=== PATIENT | male | born 1950 | race Caucasian/White ===

== ENCOUNTER 2016-08-31 17:10 | Inpatient (IN) ==
[2016-08-31] MEDS: Acetaminophen 325 MG TABLET PO PRN (19:28)
[2016-08-31] MEDS: Sennosides/Docusate Sodium TABLET PO SCH (20:38)
[2016-08-31] MEDS: *HR* OxyCODONE/APAP 7.5/325 TABLET PO PRN (20:39)
[2016-08-31] MEDS ORDERED: NON-FORMULARY MEDICATION 1 EACH EACH (Glipizide [Glipizide] 10 MG) PO SCH (21:00)
[2016-08-31] MEDS ORDERED: NON-FORMULARY MEDICATION 1 EACH EACH (Metformin Hcl [Glucophage] 1,000 MG) PO SCH (21:00)
[2016-09-01] MEDS: *HR* OxyCODONE/APAP 7.5/325 TABLET PO PRN ×2 (02:32→18:16)
[2016-09-01 06:42] LABS: INR 1.2; Prothrombin Time 13.2 Seconds (9.4-12.1)
[2016-09-01 06:43] LABS: Activated Partial Thrombo Time 31.7 Seconds (26.0-36.0)
[2016-09-01 07:01] LABS: Basophils % 0.4 %; Eosinophils # 0.3 K/mcL (0.0-0.6); Eosinophils % 4.1 %; Hematocrit 25.3 % (37.5-50.1); Hemoglobin 8.7 g/dL (12.9-16.9); Immature Granulocytes % 0.7 % (0-4); Lymphocytes # 1.5 K/mcL (0.6-4.6); Lymphocytes % 19.4 %; Mean Corpuscular HGB Conc 34.4 g/dL (31.6-35.5); Mean Corpuscular Hemoglobin 31.9 pg (28.0-33.3); Mean Corpuscular Volume 92.7 fL (83.0-100.0); Mean Platelet Volume 9.4 fL (9.4-12.4); Monocytes # 0.5 K/mcL (0.0-1.3); Neutrophils # 5.2 K/mcL (1.6-8.9); Platelet Count 422 K/mcL (140-400); Red Blood Count 2.73 M/mcL (4.19-5.50); Red Cell Distribution Width 13.2 % (11.5-14.5); Segmented Neutrophils % 69.4 %
[2016-09-01 07:04] LABS: BUN/Creatinine Ratio 27 (6-26); Blood Urea Nitrogen 22 mg/dL (8-26); Calcium 8.9 mg/dL (8.6-10.8); Carbon Dioxide 22 mEq/L (19-29); Chloride 100 mEq/L (98-109); Glucose 168 mg/dL (70-99); Osmolality,Calculated 287 (280-300); Sodium 135 mEq/L (136-145); eGFR For African Americans > 60 (> 60); eGFR For Non-African Americans > 60 (> 60)
[2016-09-01] MEDS ORDERED: Spironolactone 25 MG TABLET PO SCH (09:00)
[2016-09-01] MEDS: *HR* Metformin 500 MG TABLET PO SCH ×2 (09:29→17:12)
[2016-09-01] MEDS: *HR* GlipiZIDE 5 MG TABLET PO SCH ×2 (09:29→17:12)
[2016-09-01] MEDS: Lisinopril 20 MG TABLET PO SCH (09:31)
[2016-09-01] MEDS: FLUoxetine 20 MG CAPSULE PO SCH (09:32)
[2016-09-01] MEDS: Sennosides/Docusate Sodium TABLET PO SCH ×2 (09:32→20:27)
[2016-09-01] MEDS: Nicotine 21 MG PATCH.TD24 TD SCH (09:44)
--- NOTE | 2016-09-01 17:09 | Internal Med History&Physical ---
Date of Encounter: 09/01/16 Time of Encounter: 16:45 Assessment and Plan (1) S/P AKA (above knee amputation) Current visit: Yes Status: Acute Follow with vascular surgery as scheduled. Continue PT and OT interventions. Qualifiers: Laterality: right Qualified Code(s): Z89.611 - Acquired absence of right leg above knee (2) Anemia Current visit: Yes Status: Acute We will order anemia testing in a.m. Qualifiers: Anemia type: unspecified type Qualified Code(s): D64.9 - Anemia, unspecified (3) Hypomagnesemia Current visit: Yes Status: Acute Will discontinue HCTZ and spironolactone. We will give magnesium oxide and monitor labs. (4) Hypertension Current visit: No Status: Chronic Continue Norvasc and Zestril. Will increase clonidine and labetalol. Will discontinue Aldactone and HCTZ. Qualifiers: Hypertension type: essential hypertension Qualified Code(s): I10 - Essential (primary) hypertension Internal Medicine - H&P: HPI Chief complaint: Right AKA Admitted From: Hospital to Hospital Transfer Plans for Post Hospital Care: Home History of present illness: Mr. Darnell is a 65 year old male who was admitted to swing bed 08/31/2016 after admission 08/25/2016 at [facility] for ASPVD. He underwent right AKA. His postop course was unremarkable. He was admitted to swing bed for rehabilitation therapy prior to returning home. His cardiovascular history is significant for hypertension but he denies LA heart failure angina DVT or pulmonary embolus. Past Med Surg Social Fam HX - Past Medical History Medical history: diabetes, hyperlipidemia, hypertension Psychiatric history: no psych history - Past Surgical History Surgical History: cataract - Social History Smoking Status: Former smoker Smokeless Tobacco Status: No Alcohol use: none Drug use: none - Family History Father Family Member Ethnicity: Non- Living Status: Mother Family Member Ethnicity: Non- Living Status: Hx Family Cancer: Yes (Pancreatic) Brother Family Member Ethnicity: Non- Living Status: Still Living Hx Family Endocrine Disorder: Yes (DM) Internal Medicine - H&P: Meds FLUoxetine HCl [Fluoxetine HCl] 40 mg PO QAM 08/24/16 [History] Hydrochlorothiazide 50 mg PO DAILY 08/24/16 [History] Lisinopril [Zestril] 20 mg PO DAILY 08/24/16 [History] Prazosin HCl [Minipress] 5 mg PO HS 08/24/16 [History] GlipiZIDE [Glipizide] 10 mg PO BID 08/25/16 [History] Metformin HCl [Glucophage] 1,000 mg PO BID 08/25/16 [History] Spironolactone [Aldactone] 50 mg PO DAILY 08/25/16 [History] Amlodipine [Norvasc] 5 mg PO DAILY tablet 08/31/16 [Rx] CloNIDine HCl 0.1 mg PO BID tablet 08/31/16 [Rx] Labetalol [Trandate] 200 mg PO BID tablet 08/31/16 [Rx] OxyCODONE/APAP 7.5/325 [Percocet 7.5/325 MG] 1 each PO Q6HR PRN #20 tablet 08/31 [Rx] Sennosides/Docusate Sodium [Senna Plus] 2 each PO BID tablet 08/31/16 [Rx] Simvastatin [Zocor] 80 mg PO HS tablet 08/31/16 [Rx] Allergies meperidine [From Demerol] Allergy (Verified 08/25/16 07:30) Confusion promethazine [From Phenergan] Allergy (Verified 08/25/16 07:30) Confusion All Systems PM: A 10-system review of systems was performed and is negative for pertinent findings except as documented above in the HPI. Review of systems: Gen.: He states his weight has been stable the past few months Cardiovascular: As per history of present illness Respiratory: He quit smoking last week after beginning at age 19. He smoked up to 2 packs per day. He has not had PFTs and does not wear home oxygen. GI: He had a pancreatic lesion evaluated during his [facility] stay but it was not felt to be malignant. He denies disorders of his liver or gallbladder. : He had acute kidney injury during his [facility] stay but renal indices have now normalized. He denies other kidney bladder or prostate disorders Neurologic: He denies large distribution strokes or seizures. Endocrine: He was diagnosed with DM 2 approximately 2008. He has hyperlipidemia but denies thyroid disease Hematology/oncology: He has anemia but was unaware of this. He denies internal malignancies or other blood disorders Psychiatric: He has depression but denies anxiety or other mental health issues Musk skeletal: He denies arthritis gout or other bone joint or muscle disorders. - Constitutional Vitals: Temp Pulse Resp BP Pulse Ox 98.2 F 70 16 133/68 95 09/01/16 13:47 09/01/16 13:47 09/01/16 13:47 09/01/16 13:47 09/01/16 13:47 Exam: General: He is well-developed well-nourished male sitting in a wheelchair who appears in no acute distress HEENT: Head is atraumatic and normocephalic. Eyes: EOMI. There is no scleral icterus. Mouth: Mucosa is moist. Neck: Supple and nontender. There is no thyromegaly or adenopathy noted. Heart: Regular without murmurs gallops or ectopics. Lungs: No wheezes or crackles are heard. Abdomen: Soft and nontender. Exam is limited because he is in the seated position. Extremities: The right leg has an AKA. The incision line is clean and dry. [place] are present. The left leg shows trace palpable dorsalis pedis and posttibial pulses. There is hair down to his toes. There is no cyanosis edema or clubbing noted. 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 Neurologic: Mental status: He is talkative and a good historian. Cranial nerves : Smile is symmetric. Forehead wrinkles bilaterally. Tongue protrudes midline. EOMI. Motor: There is no pronator drift. Cerebellar: Finger to nose is intact bilaterally. Skin: Warm and dry Internal Med - H&P Results - Labs CBC & Chem 7: 09/01/16 05:50 09/01/16 05:50 Labs: Short CBC 09/01/16 Range/Units 05:50 WBC 7.5 (4.3-11.1) K/mcL Hgb 8.7 L (12.9-16.9) g/dL Hct 25.3 L (37.5-50.1) % Plt Count 422 H (140-400) K/mcL Neutrophils # 5.2 (1.6-8.9) K/mcL BMP 09/01/16 05:50 Sodium 135 L Potassium 4.0 Chloride 100 Carbon Dioxide 22 BUN 22 Creatinine 0.82 Glucose 168 H Calcium 8.9
[2016-09-01] MEDS: *HR* Enoxaparin 40 MG/0.4 ML SYRINGE SQ SCH (17:56)
[2016-09-01] MEDS: Magnesium Oxide 400 MG TABLET PO SCH (20:27)
[2016-09-02] MEDS: *HR* OxyCODONE/APAP 7.5/325 TABLET PO PRN ×2 (00:16→22:39)
[2016-09-02] MEDS: Acetaminophen 325 MG TABLET PO PRN (05:15)
[2016-09-02] MEDS: *HR* Enoxaparin 40 MG/0.4 ML SYRINGE SQ SCH (05:15)
[2016-09-02 05:44] LABS: Basophils % 0.4 %; Eosinophils # 0.3 K/mcL (0.0-0.6); Eosinophils % 3.9 %; Hematocrit 24.7 % (37.5-50.1); Hemoglobin 8.2 g/dL (12.9-16.9); Immature Granulocytes % 0.8 % (0-4); Lymphocytes # 1.8 K/mcL (0.6-4.6); Lymphocytes % 24.8 %; Mean Corpuscular HGB Conc 33.2 g/dL (31.6-35.5); Mean Corpuscular Hemoglobin 31.3 pg (28.0-33.3); Mean Corpuscular Volume 94.3 fL (83.0-100.0); Mean Platelet Volume 9.4 fL (9.4-12.4); Monocytes # 0.4 K/mcL (0.0-1.3); Monocytes % 5.1 %; Neutrophils # 4.7 K/mcL (1.6-8.9); Platelet Count 436 K/mcL (140-400); Red Blood Count 2.62 M/mcL (4.19-5.50); Red Cell Distribution Width 13.5 % (11.5-14.5)
[2016-09-02] MEDS: *HR* GlipiZIDE 5 MG TABLET PO SCH ×2 (08:15→16:59)
[2016-09-02] MEDS: *HR* Metformin 500 MG TABLET PO SCH ×2 (08:15→16:58)
[2016-09-02] MEDS: Magnesium Oxide 400 MG TABLET PO SCH ×2 (08:15→20:53)
[2016-09-02] MEDS: Sennosides/Docusate Sodium TABLET PO SCH ×2 (08:16→20:53)
[2016-09-02] MEDS: FLUoxetine 20 MG CAPSULE PO SCH (08:16)
[2016-09-02] MEDS: Nicotine 21 MG PATCH.TD24 TD SCH (08:16)
[2016-09-02] MEDS: Lisinopril 20 MG TABLET PO SCH (10:37)
[2016-09-02 11:31] LABS: % Iron Saturation 10 % (20-55); Iron 24 mcg/dL (65-175); Transferrin 165 mg/dL (174-364)
[2016-09-02 12:27] LABS: Ferritin 253 ng/ml (22-275)
[2016-09-02 12:36] LABS: Folate 5.4 ng/mL (7.0-31.4)
--- NOTE | 2016-09-02 16:45 | Internal Med Progress Note ---
Date of Encounter: 09/02/16 Time of Encounter: 16:35 - Assessment and plan (1) S/P AKA (above knee amputation) Current Visit: Yes Status: Acute Assessment and plan: September 02. Continue therapy interventions and follow up with vascular surgery as scheduled. Qualifiers: Laterality: right Qualified Code(s): Z89.611 - Acquired absence of right leg above knee (2) Anemia Current Visit: Yes Status: Acute Assessment and plan: September 02. Anemia testing showed low iron, B12, and folate. We will give replacement supplements for these. Qualifiers: Anemia type: unspecified type Qualified Code(s): D64.9 - Anemia, unspecified (3) Hypomagnesemia Current Visit: Yes Status: Acute Assessment and plan: September 02. Remain off HCTZ and Aldactone. Continue magnesium oxide and monitor labs. (4) Hypertension Current Visit: No Status: Chronic Assessment and plan: September 02. Continue Norvasc, clonidine, labetalol, lisinopril, and Minipress Qualifiers: Hypertension type: essential hypertension Qualified Code(s): I10 - Essential (primary) hypertension - Subjective Interval history: September 02. He has no new complaints. - Constitutional Vitals: Temp Pulse Resp BP Pulse Ox 98.4 F 70 20 122/66 95 09/02/16 15:27 09/02/16 15:27 09/02/16 15:27 09/02/16 15:27 09/02/16 15:27 Exam: He is resting comfortably in bed. His right stump incision shows no obvious drainage. His affect is bright and cheerful. I reviewed his medications and lab results. Internal Medicine: Result - Labs CBC & Chem 7: 09/02/16 04:45 09/01/16 05:50 Labs: Short CBC 09/02/16 Range/Units 04:45 WBC 7.2 (4.3-11.1) K/mcL Hgb 8.2 L (12.9-16.9) g/dL Hct 24.7 L (37.5-50.1) % Plt Count 436 H (140-400) K/mcL Neutrophils # 4.7 (1.6-8.9) K/mcL - ABG Interpretation ABG results: PT/INR, D-dimer PT 13.2 Seconds (9.4-12.1) H 09/01/16 05:50 Consult Discharge Plan - Plan Referrals: NO,PCP [Primary Care Provider] - 1 week
[2016-09-02] MEDS: Cyanocobalamin (B-12) 1,000 MCG TABLET PO SCH (17:34)
[2016-09-02] MEDS: Folic Acid 1 MG TABLET PO SCH (17:34)
[2016-09-03] MEDS: Sennosides/Docusate Sodium TABLET PO SCH ×2 (08:27→21:11)
[2016-09-03] MEDS: FLUoxetine 20 MG CAPSULE PO SCH (08:28)
[2016-09-03] MEDS: Cyanocobalamin (B-12) 1,000 MCG TABLET PO SCH (08:28)
[2016-09-03] MEDS: Magnesium Oxide 400 MG TABLET PO SCH ×2 (08:28→21:11)
[2016-09-03] MEDS: *HR* GlipiZIDE 5 MG TABLET PO SCH ×2 (08:28→17:29)
[2016-09-03] MEDS: Folic Acid 1 MG TABLET PO SCH (08:28)
[2016-09-03] MEDS: *HR* Enoxaparin 40 MG/0.4 ML SYRINGE SQ SCH (08:29)
[2016-09-03] MEDS: Ascorbic Acid 500 MG TABLET PO SCH (08:29)
[2016-09-03] MEDS: *HR* Metformin 500 MG TABLET PO SCH ×2 (08:29→17:29)
[2016-09-03] MEDS: Lisinopril 20 MG TABLET PO SCH (08:29)
[2016-09-03] MEDS: Nicotine 21 MG PATCH.TD24 TD SCH (08:39)
[2016-09-04] MEDS: *HR* Enoxaparin 40 MG/0.4 ML SYRINGE SQ SCH (05:18)
[2016-09-04] MEDS: Ascorbic Acid 500 MG TABLET PO SCH (05:18)
[2016-09-04 06:17] LABS: Basophils % 0.3 %; Eosinophils # 0.3 K/mcL (0.0-0.6); Eosinophils % 3.5 %; Hematocrit 25.3 % (37.5-50.1); Hemoglobin 8.2 g/dL (12.9-16.9); Immature Granulocytes % 0.7 % (0-4); Lymphocytes # 2.1 K/mcL (0.6-4.6); Lymphocytes % 22.4 %; Mean Corpuscular HGB Conc 32.4 g/dL (31.6-35.5); Mean Corpuscular Hemoglobin 31.3 pg (28.0-33.3); Mean Corpuscular Volume 96.6 fL (83.0-100.0); Mean Platelet Volume 9.1 fL (9.4-12.4); Monocytes # 0.6 K/mcL (0.0-1.3); Monocytes % 6.1 %; Neutrophils # 6.1 K/mcL (1.6-8.9); Platelet Count 549 K/mcL (140-400); Red Blood Count 2.62 M/mcL (4.19-5.50)
[2016-09-04 07:23] VITALS: BP 107/59
[2016-09-04] MEDS: *HR* Metformin 500 MG TABLET PO SCH (08:57)
[2016-09-04] MEDS: Sennosides/Docusate Sodium TABLET PO SCH (08:57)
[2016-09-04] MEDS: Magnesium Oxide 400 MG TABLET PO SCH (08:57)
[2016-09-04] MEDS: FLUoxetine 20 MG CAPSULE PO SCH (08:57)
[2016-09-04] MEDS: Folic Acid 1 MG TABLET PO SCH (08:57)
[2016-09-04] MEDS: Cyanocobalamin (B-12) 1,000 MCG TABLET PO SCH (08:58)
[2016-09-04] MEDS: Lisinopril 20 MG TABLET PO SCH (08:58)
[2016-09-04] MEDS: *HR* GlipiZIDE 5 MG TABLET PO SCH (08:58)
--- NOTE | 2016-09-04 09:36 | Discharge Summary ---
Date of Encounter: 09/04/16 Time of Encounter: 09:15 - Discharge Diagnosis (1) S/P AKA (above knee amputation) Priority: Primary Status: Acute Qualifiers: Laterality: right Qualified Code(s): Z89.611 - Acquired absence of right leg above knee (2) Anemia Priority: Secondary Status: Acute Qualifiers: Anemia type: unspecified type Qualified Code(s): D64.9 - Anemia, unspecified (3) Hypomagnesemia Priority: Secondary Status: Acute (4) Hypertension Priority: Secondary Status: Chronic Qualifiers: Hypertension type: essential hypertension Qualified Code(s): I10 - Essential (primary) hypertension - Discharge Medications Prescriptions: CloNIDine HCl 0.1 mg PO Q8HR #90 tablet Ascorbic Acid [Vitamin C] 500 mg PO DAILY #30 tablet Cyanocobalamin (B-12) [Vitamin B12] 1,000 mcg PO DAILY #30 tablet Ferrous Sulfate 325 mg PO DAILY #30 tablet Folic Acid 1 mg PO DAILY #30 tablet Home Medications: FLUoxetine HCl [Fluoxetine HCl] 40 mg PO QAM 08/24/16 [History] Lisinopril [Zestril] 20 mg PO DAILY 08/24/16 [History] Prazosin HCl [Minipress] 5 mg PO HS 08/24/16 [History] GlipiZIDE [Glipizide] 10 mg PO BID 08/25/16 [History] Metformin HCl [Glucophage] 1,000 mg PO BID 08/25/16 [History] Amlodipine [Norvasc] 5 mg PO DAILY tablet 08/31/16 [Rx] Labetalol [Trandate] 200 mg PO BID tablet 08/31/16 [Rx] OxyCODONE/APAP 7.5/325 [Percocet 7.5/325 MG] 1 each PO Q6HR PRN #20 tablet 08/31 [Rx] Sennosides/Docusate Sodium [Senna Plus] 2 each PO BID tablet 08/31/16 [Rx] Simvastatin [Zocor] 80 mg PO HS tablet 08/31/16 [Rx] Ascorbic Acid [Vitamin C] 500 mg PO DAILY #30 tablet 09/04/16 [Rx] CloNIDine HCl 0.1 mg PO Q8HR #90 tablet 09/04/16 [Rx] Cyanocobalamin (B-12) [Vitamin B12] 1,000 mcg PO DAILY #30 tablet 09/04/16 [Rx] Ferrous Sulfate 325 mg PO DAILY #30 tablet 09/04/16 [Rx] Folic Acid 1 mg PO DAILY #30 tablet 09/04/16 [Rx] Allergies/Adverse Reactions: Allergies meperidine [From Demerol] Allergy (Verified 08/25/16 07:30) Confusion promethazine [From Phenergan] Allergy (Verified 08/25/16 07:30) Confusion Date of admission: 08/31/16 17:12 Primary care physician: Sher Licona CNP Consults: 08/31/16 17:58 Consult to Occupational Therapy [CONS] Routine Comment: Evaluate, Develop, & Implement P.O.C. Consult to Physical Therapy [CONS] Routine Comment: Evaluate, Develop, & Implement P.O.C. Consult to Optical Mechanic [CONS] Routine Reason for SW Consult: D/C planning - coordination of care - pt new amputee and plans to D/C to home - Patient Status Disposition: Home Health Service - Discharge Instructions Follow Up With: Sher Licona CNP [Advanced Practice Nurse] - 1 week - Diet and Activity Activity: as per physical therapy Diet: advance to your usual diet Hospital course: Mr. Darnell is a 65 year old male who was admitted to swing bed 08/31/2016 after admission 08/25/2016 at [facility] for ASPVD. He underwent right AKA. His postop course was unremarkable. He was admitted to swing bed for rehabilitation therapy prior to returning home. Initial orders were written by the discharging physicians at [facility]. I saw him September 01 and performed a swing bed history and physical. He had physical therapy and occupational therapy evaluations with ongoing intervention. He progressed satisfactorily and on September 04 he was felt ready for discharge home. He will follow with his PCP and orthopedist as directed. Anemia testing showed iron 24, transferrin saturation 10%, ferritin 253, B12 128 , and folate 5.4. He was started on supplemental iron, B12, and folic acid and these will be continued at discharge. Hemoglobin was stable at 8.2 on the day of discharge. His clonidine was increased to every 8 hours and his blood pressure improved. This will be continued at discharge. His HCTZ and spironolactone were discontinued. He was given supplemental magnesium oxide for hypomagnesemia during hospitalization but this will not be continued at discharge. He will remain off the diuretics at discharge. He will follow with his PCP Sher Licona CNP within 1 week. - Time Spent with Patient Total time spent providing and/or coordinating discharge services: - Constitutional Vitals: Temp Pulse Resp BP Pulse Ox 98.5 F 64 18 107/59 96 09/04/16 07:19 09/04/16 07:19 09/04/16 07:19 09/04/16 07:19 09/04/16 07:19
--- NOTE | 2016-09-04 09:45 | Physician Discharge Referral ---
Home Health/Hosp Referral Info Transfer to: Home Health Attending Provider: Jose Provider in Charge Post Discharge: PCP (Sher Licona CNP) - Diagnosis (1) S/P AKA (above knee amputation) Priority: Primary Status: Acute (2) Anemia Priority: Secondary Status: Acute (3) Hypomagnesemia Priority: Secondary Status: Acute (4) Hypertension Priority: Secondary Status: Chronic - Respiratory Orders Smoking Cessation: Smoking cessation has been advised. For more information, call the [place] Tobacco Quit Line at 3-983-BQHY-NOW. - Diet/Nutrition Diet/Nutrition Orders: Regular - Activity Activity Orders: Walker - Services Needed Following services are medically necessary services: Nursing, Home Health Aide, Physical Therapy, Occupational Therapy - Transfer Medications Prescriptions: CloNIDine HCl 0.1 mg PO Q8HR #90 tablet Ascorbic Acid [Vitamin C] 500 mg PO DAILY #30 tablet Cyanocobalamin (B-12) [Vitamin B12] 1,000 mcg PO DAILY #30 tablet Ferrous Sulfate 325 mg PO DAILY #30 tablet Folic Acid 1 mg PO DAILY #30 tablet Home Medications: FLUoxetine HCl [Fluoxetine HCl] 40 mg PO QAM 08/24/16 [History] Lisinopril [Zestril] 20 mg PO DAILY 08/24/16 [History] Prazosin HCl [Minipress] 5 mg PO HS 08/24/16 [History] GlipiZIDE [Glipizide] 10 mg PO BID 08/25/16 [History] Metformin HCl [Glucophage] 1,000 mg PO BID 08/25/16 [History] Amlodipine [Norvasc] 5 mg PO DAILY tablet 08/31/16 [Rx] Labetalol [Trandate] 200 mg PO BID tablet 08/31/16 [Rx] OxyCODONE/APAP 7.5/325 [Percocet 7.5/325 MG] 1 each PO Q6HR PRN #20 tablet 08/31 [Rx] Sennosides/Docusate Sodium [Senna Plus] 2 each PO BID tablet 08/31/16 [Rx] Simvastatin [Zocor] 80 mg PO HS tablet 08/31/16 [Rx] Ascorbic Acid [Vitamin C] 500 mg PO DAILY #30 tablet 09/04/16 [Rx] CloNIDine HCl 0.1 mg PO Q8HR #90 tablet 09/04/16 [Rx] Cyanocobalamin (B-12) [Vitamin B12] 1,000 mcg PO DAILY #30 tablet 09/04/16 [Rx] Ferrous Sulfate 325 mg PO DAILY #30 tablet 09/04/16 [Rx] Folic Acid 1 mg PO DAILY #30 tablet 09/04/16 [Rx] Allergies/Adverse Reactions: Allergies meperidine [From Demerol] Allergy (Verified 08/25/16 07:30) Confusion promethazine [From Phenergan] Allergy (Verified 08/25/16 07:30) Confusion Certification: Further, I certify that my clinical findings support that this patient is homebound (i.e. absences from home require considerable and taxing effort and are for medical reasons or [employer]ec[employer] services or infrequently or short duration when for other reasons) because: Homebound Reason: Leaving home requires considerable and taxing effort due to condition (New right AKA) Attestation: My signature below is to certify that this patient is under my care and that I, or nurse practitioner, or a physician's visual merchandising assistant working with me, has a face-to -face encounter with this patient.
== END 2016-09-04 11:07 | disposition home health service (06) | DRG 561 ==
LOC: INPPIK 17:12
PROVIDERS: ADMIT Internal Medicine; ATTEND Internal Medicine